=== PATIENT | male | born 2000 | race Caucasian/White ===

== ENCOUNTER 2023-07-25 08:28 | Outpatient (CLI) | payer OTHER, SELFPAY ==
[2023-07-25 15:42] LABS: Chlamydia DNA Amplified* NOT DETECTED (No Detected); GC DNA Amplified* NOT DETECTED (No Detected)
== END 2023-07-25 08:29 | disposition home or self-care (01) ==
LOC: FRMREF 08:29
PROVIDERS: PCP Physician Assistant Medical; Visit Provider Physician Assistant Medical
DX: R30.0 Dysuria (principal); Z11.3 Encounter for screening for infections with a predominantly sexual mode of transmission
CPT/HCPCS: 87491; 87591